=== PATIENT | female | born 1970 | race African-American/Black ===

== ENCOUNTER 2017-01-19 01:34 | Emergency (ER) | payer MEDICAID ==
[~2017-01-19] VITALS: Ht 165.1 cm; Wt 75.0 kg
[2017-01-19 01:53] VITALS: BP 97/55
== END 2017-01-19 06:00 | disposition left against medical advice (07) ==
LOC: ER 01:34
DX: R11.0 Nausea (principal); R51 Headache; Z53.21 Procedure and treatment not carried out due to patient leaving prior to being seen by health care provider